=== PATIENT | female | born 1940 | race Two or more races ===

== ENCOUNTER 2025-01-24 20:22 | Emergency (ER) | payer BC ==
[~2025-01-24] VITALS: Ht 152.4 cm; Wt 59.0 kg
[2025-01-24 20:25] VITALS: O2SAT 98
[2025-01-24 21:43] LABS: BASOPHILS % 0.7 % (0.0-2.0); DIFFERENTIAL COMMENT 0; EOSINOPHILS % 2.1 % (0.0-5.0); HEMATOCRIT. 41.6 % (36.0-48.0); HEMOGLOBIN. 13.9 g/dL (12.0-16.0); LYMPHOCYTES % 18.5 % (20.0-50.0); MEAN CORPUSCULAR HEMOGLOBIN 32.4 pg (28.0-32.0); MEAN CORPUSCULAR HGB CONC 33.4 g/dL (31.0-37.0); MEAN PLATELET VOLUME 9.3 fl (7.4-10.4); MONOCYTES % 8.3 % (2.0-8.0); NEUTROPHILS % 70.4 % (40.0-76.0); PLATELET 198 x1000/uL (130-400); RED BLOOD CELL COUNT 4.29 mill/uL (4.2-5.4); RED CELL DISTRIBUTION WIDTH 13.4 % (11.6-14.6)
[2025-01-24] MEDS: ACETAMINOPHEN 325MG TABLET PO ONE (21:43)
[2025-01-24] MEDS: AMLODIPINE 5MG TABLET PO ONE (21:45)
[2025-01-24 21:50] LABS: CHLORIDE 103 mEq/L (98-107); POTASSIUM 3.5 mEq/L (3.5-5.1); SODIUM 143 mEq/L (136-145)
[2025-01-24 21:51] LABS: CALCIUM 10.5 mg/dL (8.7-10.4); CARBON DIOXIDE 32 mEq/L (21-32)
[2025-01-24 21:56] LABS: CREATININE 0.7 mg/dL (0.6-1.0); GLUCOSE 108 mg/dL (70-105); UREA NITROGEN BLOOD 12 mg/dL (9-23)
[2025-01-24 21:57] LABS: TROPONIN I HIGH SENSITIVITY < 4 ng/L (3.0-34)
[2025-01-24 22:16] VITALS: TEMP 36.9; O2SAT 98
[2025-01-24] MEDS ORDERED: AMLO5TAB5 MT (22:22)
[2025-01-24 22:52] VITALS: BP 194/86; PULSE 84; RESP 12
== END 2025-01-24 23:00 | disposition home or self-care (01) ==
LOC: ER 20:22
DX: I10 Essential (primary) hypertension (principal); Z88.0 Allergy status to penicillin
CPT/HCPCS: 36415; 80048; 84484; 85025; 93005; 99284